=== PATIENT | male | born 1995 | race Caucasian/White ===

== ENCOUNTER 2018-04-03 10:44 | Emergency (ER) | payer BC ==
[~2018-04-03] VITALS: Ht 180.3 cm; Wt 140.6 kg
[~2018-04-03 10:44] MED LIST: ALLEGRA ALLERG180 MG PO; Benadryl 50 mg50 MG PO; CYCL10 PO; DIPH50 PO; Epipen0.3 MG/0.3 IM; FEXO60 PO; IBUP100S PO; LORTAB 10 MG-3473 ML PO; METPRE4DP PO; NAPR500 PO; Norco 5-325 Ta1 EACH PO; PRED10 PO; Pepcid20 MG PO; Prednisone20 MG PO; RXCODACET PO; Zofran Odt8 MG SL
[2018-04-03] MEDS ORDERED: Mupirocin22 GM TOP (13:11)
[2018-04-03] MEDS ORDERED: Norco 5-325 Ta1 EACH PO (13:11)
[2018-04-03] MEDS ORDERED: MONDOXYNE NL100 MG PO (13:11)
== END 2018-04-03 13:17 | disposition home or self-care (01) ==
LOC: ER 10:44
DX: L03.316 Cellulitis of umbilicus (principal); Z88.6 Allergy status to analgesic agent
CPT/HCPCS: 36415; 74177; 87070; 87075; 87205; 99284-25; Q9967

== ENCOUNTER 2018-07-24 20:05 | Emergency (ER) | payer BC, OTHER ==
[~2018-07-24] VITALS: Ht 180.3 cm; Wt 136.1 kg
[~2018-07-24 20:05] MED LIST changes: +MONDOXYNE NL100 MG PO; +Mupirocin22 GM TOP
[2018-07-24] MEDS ORDERED: Doxycycline Mo100 M1 PO (21:11)
== END 2018-07-24 21:25 | disposition home or self-care (01) ==
LOC: ER 20:05
DX: L03.316 Cellulitis of umbilicus (principal); Z88.6 Allergy status to analgesic agent
CPT/HCPCS: 99283

== ENCOUNTER 2018-07-25 11:39 | Emergency (ER) | payer BC, OTHER ==
[~2018-07-25] VITALS: Ht 180.3 cm; Wt 136.1 kg
[~2018-07-25 11:39] MED LIST changes: +Doxycycline Mo100 M1 PO
== END 2018-07-25 11:50 | disposition home or self-care (01) ==
LOC: ER 11:39
DX: L03.311 Cellulitis of abdominal wall (principal); K42.9 Umbilical hernia without obstruction or gangrene; Z88.6 Allergy status to analgesic agent
CPT/HCPCS: 99282

== ENCOUNTER → 2018-07-26 | Outpatient (CLI) | payer BC, OTHER | END | disposition home or self-care (01) | LOC: LAB 12:26 → LAB SHORT 12:26 | DX: L03.316 Cellulitis of umbilicus (principal); R19.8 Other specified symptoms and signs involving the digestive system and abdomen | CPT/HCPCS: 87070; 87077; 87205 ==

== ENCOUNTER 2020-11-22 19:13 | Emergency (ER) | payer SELFPAY ==
[~2020-11-22] VITALS: Ht 180.3 cm; Wt 140.6 kg
== END 2020-11-22 22:10 | disposition home or self-care (01) ==
LOC: ER 19:13
DX: J02.9 Acute pharyngitis, unspecified (principal); Z20.822 Contact with and (suspected) exposure to COVID-19; Z88.6 Allergy status to analgesic agent
CPT/HCPCS: 87081; 87430; 99283; A9270

== ENCOUNTER 2021-07-14 15:52 | Emergency (ER) | payer OTHER ==
[~2021-07-14] VITALS: Ht 175.3 cm; Wt 95.7 kg
[2021-07-14 16:30] LABS: BASOPHILS ABSOLUTE AUTO 0.03 K/mm3 (0.00-0.23); BASOPHILS PERCENT AUTO 0 % (0-2); EOSINOPHILS PERCENT AUTO 0 % (0-6); Hematocrit 49.5 % (37.0-53.0); Hemoglobin 16.7 g/dL (13.5-17.5); IMMATURE GRAN ABSOLUTE AUTO 0.03 K/mm3 (0.00-0.10); IMMATURE GRAN PERCENT AUTO 0 % (0-1); LYMPHOCYTES ABSOLUTE AUTO 0.68 K/mm3 (0.84-5.20); LYMPHOCYTES PERCENT AUTO 7 % (21-46); MONOCYTES ABSOLUTE AUTO 0.75 K/mm3 (0.16-1.47); MONOCYTES PERCENT AUTO 8 % (4-13); Mean Corpuscular HGB 26.9 pg (26.0-34.0); Mean Corpuscular HGB Conc 33.7 g/dL (31.5-36.5); Mean Corpuscular Volume 80 fL (80-100); Mean Platelet Volume 9.9 fL (9.1-12.4); NEUTROPHILS PERCENT AUTO 85 % (41-73); Platelet Count 230 K/mm3 (150-400); RDW Coefficient Variation 13.4 % (11.7-14.2); RDW Standard Deviation 38.4 fL (35.1-46.3); Red Blood Cell Count 6.21 M/mm3 (4.30-5.90); White Blood Cell Count 9.69 K/mm3 (4.00-11.30)
[2021-07-14 16:44] LABS: Albumin, Blood 3.9 g/dL (3.4-5.0); Bilirubin, Total 1.9 mg/dL (0.1-1.0); Bun/Creatinine Ratio 12.9 (12.0-20.0); Creatinine, Blood 0.86 mg/dL (0.60-1.20); Globulin, Blood 3.9 g/dL (2.2-4.0); Potassium, Blood 3.8 mmol/L (3.5-5.5); Total Protein, Blood 7.8 g/dL (6.4-8.2)
[2021-07-14 16:55] LABS: Influenza A, PCR NEGATIVE (NEGATIVE); Influenza B, PCR NEGATIVE (NEGATIVE); Resp Syncytial Virus, PCR NEGATIVE (NEGATIVE); SARS-Cov-2 (COVID-19) PCR, MMC NEGATIVE (NEGATIVE)
[2021-07-14] MEDS ORDERED: ACETAMINOPHEN500 MG PO (20:15)
== END 2021-07-14 20:23 | disposition home or self-care (01) ==
LOC: ER 15:52
PROVIDERS: Physician Assistant
DX: R55 Syncope and collapse (principal); R06.02 Shortness of breath; R53.1 Weakness; R50.9 Fever, unspecified; Z88.6 Allergy status to analgesic agent; Z20.822 Contact with and (suspected) exposure to COVID-19
CPT/HCPCS: 0241U; 36415; 71046; 80053; 83690; 85025; 93005; 93010; 96360; 99284-25; A9270; J7030

== ENCOUNTER → 2021-07-18 | Outpatient (CLI) | payer OTHER ==
[~2021-07-18] MED LIST changes: +ACETAMINOPHEN500 MG PO
[2021-07-18 15:40] LABS: Hematocrit 47.6 % (37.0-53.0); Hemoglobin 15.5 g/dL (13.5-17.5); Mean Corpuscular HGB 26.5 pg (26.0-34.0); Mean Corpuscular HGB Conc 32.6 g/dL (31.5-36.5); Mean Corpuscular Volume 81 fL (80-100); Mean Platelet Volume 11.1 fL (9.1-12.4); Platelet Count 266 K/mm3 (150-400); RDW Coefficient Variation 13.5 % (11.7-14.2); RDW Standard Deviation 39.9 fL (35.1-46.3); Red Blood Cell Count 5.85 M/mm3 (4.30-5.90); White Blood Cell Count 3.64 K/mm3 (4.00-11.30)
[2021-07-18 15:52] LABS: Albumin, Blood 3.5 g/dL (3.4-5.0); Albumin/Globulin Ratio 1.1 (0.8-1.8); Bun/Creatinine Ratio 13.3 (12.0-20.0); Calcium, Blood 8.7 mg/dL (8.5-10.1); Creatinine, Blood 0.68 mg/dL (0.60-1.20); Globulin, Blood 3.3 g/dL (2.2-4.0); Potassium, Blood 4.6 mmol/L (3.5-5.5); Total Protein, Blood 6.8 g/dL (6.4-8.2)
[2021-07-18 16:03] LABS: BASOPHILS PERCENT MAN 0 % (0-2); EOSINOPHILS ABSOLUTE MAN 0.07 K/mm3 (0.00-0.68); EOSINOPHILS PERCENT MAN 2 % (0-6); LYMPHOCYTES % ATYPICAL MANUAL 4 % (0-0); LYMPHOCYTES ABSOLUTE MAN 1.27 K/mm3 (0.84-5.20); LYMPHOCYTES PERCENT MAN 31 % (21-46); MONOCYTES ABSOLUTE MAN 0.43 K/mm3 (0.16-1.47); MONOCYTES PERCENT MAN 12 % (4-13); NEUTROPHILS ABSOLUTE MAN 1.85 K/mm3 (1.96-9.15); SEG NEUTROPHILS PERCENT MAN 51 % (41-73); TOTAL CELLS COUNTED 100
== END ==
LOC: LAB 10:15 → LAB SHORT 10:15
PROVIDERS: Family Medicine
DX: R21 Rash and other nonspecific skin eruption (principal)
CPT/HCPCS: 80053; 85025

== ENCOUNTER → 2022-05-16 | Outpatient (CLI) | payer OTHER ==
[2022-05-18 00:07] LABS: CHLAMYDIA TRACHOMATIS, NAA Negative (Negative)
== END | disposition home or self-care (01) ==
LOC: LAB SHORT 17:39 → LAB 17:39
PROVIDERS: Nurse Practitioner
DX: N39.0 Urinary tract infection, site not specified (principal); R30.9 Painful micturition, unspecified
CPT/HCPCS: 87086; 87491; 87591

== ENCOUNTER 2024-04-29 06:37 | Emergency (ER) | payer OTHER ==
[~2024-04-29] VITALS: Ht 180.3 cm; Wt 149.7 kg
[2024-04-29 07:32] LABS: BASOPHILS ABSOLUTE AUTO 0.03 K/mm3 (0.00-0.23); BASOPHILS PERCENT AUTO 0 % (0-2); EOSINOPHILS ABSOLUTE AUTO 0.15 K/mm3 (0.00-0.68); EOSINOPHILS PERCENT AUTO 2 % (0-6); Hematocrit 45.2 % (37.0-53.0); Hemoglobin 15.7 g/dL (13.5-17.5); IMMATURE GRAN ABSOLUTE AUTO 0.03 K/mm3 (0.00-0.10); IMMATURE GRAN PERCENT AUTO 0 % (0-1); LYMPHOCYTES ABSOLUTE AUTO 2.08 K/mm3 (0.84-5.20); LYMPHOCYTES PERCENT AUTO 30 % (21-46); MONOCYTES ABSOLUTE AUTO 0.41 K/mm3 (0.16-1.47); MONOCYTES PERCENT AUTO 6 % (4-13); Mean Corpuscular HGB 27.1 pg (26.0-34.0); Mean Corpuscular HGB Conc 34.7 g/dL (31.5-36.5); Mean Corpuscular Volume 78 fL (80-100); Mean Platelet Volume 10.1 fL (9.1-12.4); NEUTROPHILS ABSOLUTE AUTO 4.22 K/mm3 (1.96-9.15); NEUTROPHILS PERCENT AUTO 61 % (41-73); Platelet Count 266 K/mm3 (150-400); RDW Coefficient Variation 13.1 % (11.7-14.2); RDW Standard Deviation 36.9 fL (35.1-46.3); White Blood Cell Count 6.92 K/mm3 (4.00-11.30)
[2024-04-29 07:52] LABS: Bun/Creatinine Ratio 12.7 (12.0-20.0); Calcium, Blood 8.9 mg/dL (8.5-10.1); Creatinine, Blood 0.79 mg/dL (0.60-1.20); Potassium, Blood 4.1 mmol/L (3.5-5.5)
[2024-04-29 08:26] VITALS: BP 120/95
== END 2024-04-29 08:30 | disposition home or self-care (01) ==
LOC: ER 06:37
PROVIDERS: Emergency Medicine
DX: I10 Essential (primary) hypertension (principal); R00.2 Palpitations; Z88.6 Allergy status to analgesic agent; Z79.1 Long term (current) use of non-steroidal anti-inflammatories (NSAID)
CPT/HCPCS: 80048; 85025; 93005; 93010; 99285-25